=== PATIENT | male | born 1965 | race Two or more races ===

== ENCOUNTER 2021-11-02 11:48 | Emergency (ER) | payer OTHER ==
[~2021-11-02] VITALS: Ht 160 cm; Wt 61.7 kg
[2021-11-02] MEDS ORDERED: DICLOFENAC POTA50 MG PO (15:53)
== END 2021-11-02 18:17 ==
LOC: ER 11:48
DX: S62.606A Fracture of unspecified phalanx of right little finger, initial encounter for closed fracture (principal); W18.39XA Other fall on same level, initial encounter; Y93.89 Activity, other specified; Y92.89 Other specified places as the place of occurrence of the external cause; Y99.9 Unspecified external cause status

== ENCOUNTER 2021-12-07 11:55 | Emergency (ER) | payer OTHER ==
[~2021-12-07] VITALS: Ht 162.6 cm; Wt 63.5 kg
[~2021-12-07 11:55] MED LIST: DICLOFENAC POTA50 MG PO
== END 2021-12-07 15:51 | disposition home or self-care (01) ==
LOC: ER 11:55
DX: S62.606G Fracture of unspecified phalanx of right little finger, subsequent encounter for fracture with delayed healing (principal); M79.644 Pain in right finger(s)